=== PATIENT | male | born 1960 ===

== ENCOUNTER → 2022-12-15 10:22 | Outpatient (CLI) | payer MEDICARE, MEDICAID, SELFPAY ==
--- NOTE | ~2022-12-15 | CT_ITS ---
EXAMINATION: CT lumbar spine wo con DATE: 12/15/2022 10:41 INDICATION: Low back pain. TECHNIQUE: Computed tomography (CT) of the lumbar spine was performed without intravenous contrast. A utomated exposure control and iterative reconstruction technique were employed. The dose-length produ ct was 987.22 mGy-cm. COMPARISON: None FINDINGS: There is 9 degrees dextrocurvature of lumbar spine. There is mild chronic anterior wedging of T12 and L1 vertebral bodies. 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 There is mildly decreased disc height from T11-T12 through L1-L2, moderately decrease d disc height at L2-L3, severely decreased disc height at L3-L4 and L4-L5, and mildly decreased disc height at L5-S1. There is vacuum disc phenomenon from L2-L3 through L4-L5. The following disc levels are specifically discussed: L1-L2: The disc is bulging. There is moderate right and mild left facet joint osteoarthritis. There i s mild bilateral neural foraminal stenosis. There is mild central canal stenosis. L2-L3: The disc is bulging. There is severe bilateral facet joint osteoarthritis. There is moderate b ilateral neural foraminal stenosis. There is moderate central canal stenosis. L3-L4: The disc is bulging. There is severe bilateral facet joint osteoarthritis. There is moderate b ilateral neural foraminal stenosis. There is moderate central canal stenosis. L4-L5: The disc is bulging. There is severe bilateral facet joint osteoarthritis. There is severe rig ht and moderate left neural foraminal stenosis. There is severe central canal stenosis. L5-S1: The disc is bulging. There is severe bilateral facet joint osteoarthritis. There is mild right and moderate left neural foraminal stenosis. There is mild central canal stenosis. IMPRESSION: 1. Severe lumbar spondylosis. Reviewed, dictated and finalized at location A.
== END ==
PROVIDERS: PCP Anesthesiology Pain Medicine; Visit Provider Anesthesiology Pain Medicine
DX: M47.816 Spondylosis without myelopathy or radiculopathy, lumbar region (principal)
CPT/HCPCS: 72131